=== PATIENT | female | born 1965 | race Caucasian/White ===

== ENCOUNTER → 2023-02-26 | Outpatient (CLI) | payer OTHER ==
[~2023-02-26] MED LIST: Acetaminophen650 M1 PO; LEVSOD25 PO; Norco 5-325 Ta1 EACH PO; ONDA4 PO
[2023-02-26 15:53] LABS: BASOPHILS ABSOLUTE AUTO 0.07 K/mm3 (0.00-0.23); BASOPHILS PERCENT AUTO 1 % (0-2); EOSINOPHILS ABSOLUTE AUTO 0.19 K/mm3 (0.00-0.68); EOSINOPHILS PERCENT AUTO 2 % (0-6); Hematocrit 41.6 % (33.0-51.0); Hemoglobin 13.6 g/dL (11.5-16.0); IMMATURE GRAN ABSOLUTE AUTO 0.02 K/mm3 (0.00-0.10); IMMATURE GRAN PERCENT AUTO 0 % (0-1); LYMPHOCYTES ABSOLUTE AUTO 1.66 K/mm3 (0.84-5.20); LYMPHOCYTES PERCENT AUTO 19 % (21-46); MONOCYTES ABSOLUTE AUTO 0.62 K/mm3 (0.16-1.47); MONOCYTES PERCENT AUTO 7 % (4-13); Mean Corpuscular HGB 29.4 pg (26.0-34.0); Mean Corpuscular HGB Conc 32.7 g/dL (31.5-36.5); Mean Corpuscular Volume 90 fL (80-100); Mean Platelet Volume 10.4 fL (9.1-12.4); NEUTROPHILS ABSOLUTE AUTO 6.32 K/mm3 (1.96-9.15); NEUTROPHILS PERCENT AUTO 71 % (41-73); Platelet Count 275 K/mm3 (150-400); RDW Standard Deviation 42.6 fL (35.1-46.3); Red Blood Cell Count 4.63 M/mm3 (3.80-5.20); White Blood Cell Count 8.88 K/mm3 (4.00-11.30)
[2023-02-26 16:30] LABS: C-REACTIVE PROTEIN, EXT RANGE 0.398 mg/dL (0.000-0.300)
[2023-02-26 16:41] LABS: Albumin, Blood 3.5 g/dL (3.4-5.0); Albumin/Globulin Ratio 1.1 (0.8-1.8); Bilirubin, Total 0.3 mg/dL (0.1-1.0); Bun/Creatinine Ratio 11.6 (12.0-20.0); Calcium, Blood 8.9 mg/dL (8.5-10.1); Creatinine, Blood 0.86 mg/dL (0.40-1.00); Free Thyroxine 1.25 ng/dL (0.70-1.60); Globulin, Blood 3.1 g/dL (2.2-4.0); Potassium, Blood 3.7 mmol/L (3.5-5.5); Thyroid Stimulating Hormone 2.04 uIU/mL (0.360-4.800); Total Protein, Blood 6.6 g/dL (6.4-8.2)
== END | disposition home or self-care (01) ==
LOC: LAB 09:36 → LAB SHORT 09:36
PROVIDERS: Internal Medicine
DX: M45.9 Ankylosing spondylitis of unspecified sites in spine (principal); E03.9 Hypothyroidism, unspecified
CPT/HCPCS: 80053; 84439; 84443; 84480; 85025; 85651; 86140